=== PATIENT | male | born 1945 | race Caucasian/White ===

== ENCOUNTER → 2016-05-15 | Outpatient (CLI) | payer MEDICARE, OTHER | END | disposition home or self-care (01) | LOC: GMAL 10:51 | PROVIDERS: ATTEND Family Medicine | DX: R53.83 Other fatigue (principal); D51.3 Other dietary vitamin B12 deficiency anemia; E55.9 Vitamin D deficiency, unspecified ==

== ENCOUNTER → 2016-05-23 | Outpatient (CLI) | payer MEDICARE, OTHER ==
--- NOTE | 2016-05-24 10:55 | CT ---
EXAM DESCRIPTION: CT LUMBAR SPINE WITHOUT IV CONTRAST CLINICAL HISTORY: 71 y/o M, RADICULOPATHY LUMBAR REGION. M54.16 COMPARISON: None TECHNIQUE: CT of the lumbar spine was performed without IV contrast. FINDINGS: There is no vertebral body fracture or subluxation. Slight disk space narrowing at L2-3 with anterior osteophyte formation at several levels, most apparent at L2-3. The spinous and transverse processes are intact. The sacroiliac joints are fairly well maintained. The paraspinal and visualized retroperitoneal soft tissues are unremarkable. The facet joints are fairly well maintained. There is mild concentric disc bulging at several levels, slightly worse at L4-5 with ligamentum flavum thickening at the same level resulting in mild central canal stenosis. No additional central canal or neural foraminal stenosis. There are mural calcifications in the abdominal aorta without aneurysm. IMPRESSION: Mild concentric disc bulging at several levels with mild central canal stenosis at L4-5. Atherosclerotic vascular disease. Electronically signed by: Fercho Lobo DO 05/24/2016 10:53
== END | disposition home or self-care (01) ==
LOC: CT 13:47
PROVIDERS: ATTEND Family Medicine
DX: M54.16 Radiculopathy, lumbar region (principal)

== ENCOUNTER → 2016-08-19 | Outpatient (CLI) | payer MEDICARE, OTHER | END | disposition home or self-care (01) | LOC: GMAL 15:14 | PROVIDERS: ATTEND Family Medicine | DX: D51.3 Other dietary vitamin B12 deficiency anemia (principal); E55.9 Vitamin D deficiency, unspecified ==

== ENCOUNTER → 2016-11-17 | Outpatient (CLI) | payer MEDICARE, OTHER | END | disposition home or self-care (01) | LOC: GMAL 14:07 | PROVIDERS: ATTEND Family Medicine | DX: D51.3 Other dietary vitamin B12 deficiency anemia (principal); Z12.5 Encounter for screening for malignant neoplasm of prostate; E55.9 Vitamin D deficiency, unspecified | CPT/HCPCS: 82306; 82607; G0103 ==

== ENCOUNTER → 2016-12-01 | Outpatient (CLI) | payer MEDICARE, OTHER | END | disposition home or self-care (01) | LOC: GMAL 14:12 | PROVIDERS: ATTEND Family Medicine | DX: G40.309 Generalized idiopathic epilepsy and epileptic syndromes, not intractable, without status epilepticus (principal); R97.20 Elevated prostate specific antigen [PSA] ==

== ENCOUNTER → 2017-10-22 | Outpatient (CLI) | payer MEDICARE, OTHER | LOC: GMAL 10:54 | PROVIDERS: ATTEND Family Medicine | DX: D51.3 Other dietary vitamin B12 deficiency anemia (principal); R53.83 Other fatigue; E29.8 Other testicular dysfunction ==

== ENCOUNTER → 2017-11-03 | Outpatient (CLI) | payer MEDICARE, OTHER | LOC: RESP 09:54 | DX: R00.1 Bradycardia, unspecified (principal) ==

== ENCOUNTER → 2018-01-20 | Outpatient (CLI) | payer MEDICARE, OTHER | LOC: GMAL 13:01 | PROVIDERS: ATTEND Family Medicine | DX: D51.3 Other dietary vitamin B12 deficiency anemia (principal); R97.20 Elevated prostate specific antigen [PSA]; E11.9 Type 2 diabetes mellitus without complications; E29.8 Other testicular dysfunction; I10 Essential (primary) hypertension ==

== ENCOUNTER → 2018-04-26 | Outpatient (CLI) | payer MEDICARE, OTHER | LOC: GMAL 14:20 | PROVIDERS: ATTEND Family Medicine | DX: R97.20 Elevated prostate specific antigen [PSA] (principal) ==

== ENCOUNTER → 2018-12-10 | Outpatient (CLI) | payer MEDICARE, OTHER | LOC: GMAL 10:19 | PROVIDERS: ATTEND Family Medicine | DX: E11.42 Type 2 diabetes mellitus with diabetic polyneuropathy (principal) ==

== ENCOUNTER → 2019-01-25 | Outpatient (CLI) | payer MEDICARE, OTHER | LOC: GMAL 14:14 | PROVIDERS: ATTEND Family Medicine | DX: D51.3 Other dietary vitamin B12 deficiency anemia (principal); I10 Essential (primary) hypertension; R97.20 Elevated prostate specific antigen [PSA]; E11.9 Type 2 diabetes mellitus without complications; E78.49 Other hyperlipidemia ==

== ENCOUNTER → 2019-11-15 | Outpatient (CLI) | payer MEDICARE, OTHER | LOC: GMAL 14:48 | PROVIDERS: ATTEND Family Medicine | DX: R97.20 Elevated prostate specific antigen [PSA] (principal); R53.83 Other fatigue; E78.49 Other hyperlipidemia; E11.9 Type 2 diabetes mellitus without complications; Z79.899 Other long term (current) drug therapy ==

== ENCOUNTER → 2020-01-09 | Outpatient (CLI) | payer MEDICARE, OTHER | LOC: GMAL 11:39 | PROVIDERS: ATTEND Family Medicine | DX: R97.20 Elevated prostate specific antigen [PSA] (principal) ==

== ENCOUNTER → 2020-04-20 | Outpatient (CLI) | payer MEDICARE, OTHER ==
--- NOTE | 2020-04-21 14:32 | RAD ---
EXAM: Foot,Left 3 Views INDICATION: 75 years Male, FOOT PAIN COMPARISON: 3 views of the left foot 04/03/2020 FINDINGS: 3 views of the left foot were performed. Osteopenia. There have been interval changes of healing at a previously identified fracture of the fifth toe proximal phalanx. A lucent fracture cleft is no longer apparent. No new fracture is identified. No dislocation. The Lisfranc joint is intact. No apparent destructive osseous lesion. No periosteal reaction or osseous erosions. Deformity of the head of the fourth metatarsal is similar to the prior examination of 04/03/2020 and is probably due to remote prior trauma. A linear radiopaque foreign body in the soft tissues between the first and second toe is similar to the prior examination. Scattered moderate degenerative changes again noted. IMPRESSION: 1. Changes of interval healing at a left foot fifth toe proximal phalanx fracture. 2. Additional stable findings as described above. Electronically signed by: Milagros Whittaker MD 04/21/2020 2:30 PM [facility]
== END ==
LOC: RAD 09:46
PROVIDERS: ATTEND Orthopaedic Surgery
DX: S92.515D Nondisplaced fracture of proximal phalanx of left lesser toe(s), subsequent encounter for fracture with routine healing (principal)